=== PATIENT | male | born 1980 | race Caucasian/White ===

== ENCOUNTER 2023-11-17 13:10 | Emergency (ER) | payer OTHER, SELFPAY ==
[2023-11-17 13:22] VITALS: BP 125/88; PULSE 88; RESP 16; TEMP 36.1; O2SAT 100
--- NOTE | 2023-11-17 13:55 | ED.DIZZY ---
HPI - Dizziness General Chief Complaint: Dizziness Stated Complaint: Sinus Infection Symptoms/Dizziness Time Seen by Provider: 11/17/23 13:55 Source: patient and RN notes reviewed Mode of arrival: ambulatory Limitations: no limitations History of Present Illness HPI Narrative: 43 y/o male presented for c/o dizziness, onset yesterday. Describes an intermittent room-spinning sensation, worse with movements and turning head to the left. Pt also reports bilateral ear pressure. Denies nasal congestion, cough, tinnitus, ear drainage, n/v/d/f/c. Took DayQuil and NyQuil. Also tried Zev maneuver at home this morning, and reports the symptoms are not as severe. Related Data Home Medications Medication Instructions Recorded Confirmed lisdexamfetamine 20 mg capsule 20 mg PO DAILY 11/17/23 11/17/23 Allergies Allergy/AdvReac Type Severity Reaction Status Date / Time No Known Allergies Allergy Verified 11/17/23 13:48 Review of Systems Review of Systems: CONSTITUTIONAL: Denies body aches, fever, chills, or sweats. EYES: Denies visual changes, redness, or discharge. ENT: Denies rhinorrhea, congestion, sore throat, or otalgia. CARDIOVASCULAR: Denies chest pain, palpitations, or edema. RESPIRATORY: Denies cough or dyspnea. GASTROINTESTINAL: Denies abdominal pain, nausea, vomiting, or diarrhea. GENITOURINARY: Denies dysuria or hematuria. SKIN: Denies rash, itching, or wounds. MUSCULOSKELETAL: Denies back pain, joint pain NEUROLOGIC: Endorses dizziness denies headache, numbness, tingling, or weakness, All systems reviewed & are unremarkable except as noted in HPI and below PMFSH Comments At time of signature, I have reviewed and agree with nursing past medical, surgical, social and family history unless otherwise noted. Please see nursing chart for further information. There is no relevant family history pertinent to the presenting complaint Exam Narrative: GENERAL: Well-appearing, well-nourished HEAD: Normocephalic, atraumatic. EYES: PERRLA, EOMI. ENT: Mucous membranes pink and moist. No rhinorrhea. TMs normal bilaterally, mild clear effusion bilat. NECK: Normal AROM. Supple. No lymphadenopathy. CHEST: No respiratory distress. Clear to auscultation. HEART: Regular rate and rhythm. No murmur appreciated. Normal peripheral pulses. ABDOMEN: Soft, nontender, nondistended, normal active bowel sounds. EXTREMITIES: Normal range of motion. No edema. SKIN: Warm, dry, no rash. Capillary refill normal. Normal skin turgor. NEURO: Dizziness with head movement. No focal deficits. Alert and oriented x3. Finger to nose intact bilaterally. EOMs intact without nystagmus. No facial droop/asymmetry noted bilaterally. Grimace intact. Intact sensation in face. Hearing intact bilaterally. Shoulder shrug intact. Strength 5/5 bilateral upper extremities. Ambulatory exam with a normal based, steady gait. PSYCH: Normal affect. Course Course Emergency Course: Patient is aware of diagnosis, understands and agrees to treatment plan. Anticipatory guidance given. Patient agrees to follow-up as directed and is aware of reasons to seek care at the emergency department. Portions of this record may have been created with voice recognition software Level of Care: Express Care Visit Vital Signs Vital signs: Vital Signs Temperature 96.9 F L 11/17/23 13:22 Pulse Rate 88 11/17/23 13:22 Respiratory Rate 16 11/17/23 13:22 Blood Pressure 125/88 11/17/23 13:22 Pulse Oximetry 100 11/17/23 13:22 Temperature 96.9 F L 11/17/23 13:22 Pulse Rate 88 11/17/23 13:22 Respiratory Rate 16 11/17/23 13:22 Blood Pressure 125/88 11/17/23 13:22 Pulse Oximetry 100 11/17/23 13:22 MDM - Dizziness MDM Narrative Medical decision making narrative: Patients vertigo is felt to be likely peripheral in origin. there is no diplopia, dysarthria, or dysphagia. Patients gait is stable and there are no focal neurological def
[2023-11-17] MEDS: MECLIZINE HCL 25 MG TABLET PO (14:10)
== END 2023-11-17 14:20 | disposition home or self-care (01) ==
PROVIDERS: Emergency Provider Nurse Practitioner Family; PCP Family Medicine
DX: R42 Dizziness and giddiness (principal)
CPT/HCPCS: 99213; A9270; G0463

== ENCOUNTER 2024-10-22 02:18 | Day surgery (SDC) | payer OTHER, SELFPAY ==
[2024-10-07 13:06] VITALS: BMI 30.7
--- OUTSIDE RECORDS SUMMARY | 2024-10-22 02:21 | XMS_ITS | Clinical Summary ---
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 Role Phone Unavailable Primary Care Provider Unavailabl e Social History Tobacco Use Types Packs/Day Years Used Date Smoking Tobacco: Never Assessed Sex and Gender Information Value Date Recorded Sex Assigned at Not on file Legal Sex Male 7:54 AM CDT Gender Identity Not on file Sexual Orientation Not on file Last Filed Vital Signs Vital Sign Reading Time Taken Comments Blood Pressure 118/76 02/20/2015 2:33 PM CDT Pulse 88 02/20/2015 2:33 PM CDT Temperature - - Respiratory Rate - - Oxygen Saturation - - Inhaled Oxygen Concentration - - Weight 105 kg (231 lb 7 oz) 11/21/2013 8:01 AM C DT Height 180.3 cm (5' 11) 11/21/2013 8:01 AM CDT Body Mass Index 32.28 11/21/2013 8:01 AM CDT Plan of Treatment Health Maintenance Due Date Last Done Comments Colorectal Cancer Screening Colonoscopy (10 Years) 1979 Annual Physical 07/30/1982 Hepatitis C 07/30/1997 DTaP, Tdap and Td Vaccines ( 1 - Tdap) 07/30/1998 Hepatitis B Vaccines (1 of 3 - 19+ 3-dose series) 07/30/1998 COVID-19 Vaccine (2023-2 5 season) 2024 HPV Vaccines Aged Out No longer eligi ble based on patient's age to complete this topic Meningococcal B Vaccine Aged Out No l onger eligible based on patient's age to complete this topic Meningococcal Vaccine Aged Out No sandra quirino eligible based on patient's age to complete this topic Pneumococcal Vaccine: Pediat rics (0 to 5 Years) and At-Risk Patients (6 to 49 Years) Aged Out No longer eligible b ased on patient's age to complete this topic RSV Immunizations Under 20 Months Aged Out No longer eligible based on patient's age to complete this topic
--- OUTSIDE RECORDS SUMMARY | 2024-10-22 02:21 | XMS_ITS | Patient Health Record ---
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 Sara Gracia Unavailable [phone] Migration, Provider Unavailable Unavailable Allergies No Known Allergies Results Component Value Reference Range Notes Vitamin D, 25-Hydroxy Reviewed date:01/04/2024 12:00:00 AM Interpretation: Performing Lab: Notes/Report: Vitamin D, 25-Hydroxy 25.8 ng/mL Vitamin B12 Reviewed date:01/04/2024 12:00:00 AM Interpretation: Performing Lab: Notes/Report: Vitamin B12 692 pg/mL TSH Reviewed date:01/04/2024 12:00:00 AM Interpretation: Performing Lab: Notes/Report: TSH 1.550 uIU/mL Thyroxine (T4) Free, Direct, S Reviewed date:01/04/2024 12:00:00 AM Interpretation: Performing Lab: Notes/Report: T4,Free(Direct) 1.29 ng/dL Lipid Panel Reviewed date:01/04/2024 12:00:00 AM Interpretation: Performing Lab: Notes/Report: Cholesterol, Total 229 mg/dL HDL Cholesterol 29 mg/dL LDL Chol Calc (NIH) 155 mg/dL Triglycerides 243 mg/dL VLDL Cholesterol [place] 45 mg/dL Comp. Metabolic Panel (14) Reviewed date:01/04/2024 12:00:00 AM Interpretation: Performing Lab: Notes/Report: Albumin 4.3 g/dL Alkaline Phosphatase 99 IU/L ALT (SGPT) 35 IU/L AST (SGOT) 27 IU/L Bilirubin, Total 0.9 mg/dL BUN 14 mg/dL BUN/Creatinine Ratio 15 Calcium 9.0 mg/dL Carbon Dioxide, Total 20 mmol/L Chloride 104 mmol/L Creatinine 0.91 mg/dL eGFR 107 mL/min/1.73 Globulin, Total 2.1 g/dL Glucose 80 mg/dL Potassium 4.1 mmol/L Protein, Total 6.4 g/dL Sodium 140 mmol/L CBC With Differential/Platel et Reviewed date:01/04/2024 12:00:00 AM Interpretation: Performing Lab: Notes/Report: Baso (Absolute) 0.0 x10E3/uL Basos 0 % Eos 2 % Eos (Absolute) 0.1 x10E3/uL Hematocrit 51.0 % Hemoglobin 17.0 g/dL Immature Grans (Abs) 0.0 x10E3/uL Immature Granulocytes 0 % Lymphs 28 % Lymphs (Absolute) 1.5 x10E3/uL MCH 28.9 pg MCHC 33.3 g/dL MCV 87 fL Monocytes 9 % Monocytes(Absolute) 0.5 x10E3/uL Neutrophils 61 % Neutrophils (Absolute) 3.3 x10E3/uL Platelets 218 x10E3/uL RBC 5.89 x10E6/uL RDW 12.9 % WBC 5.4 x10E3/uL Reason For Referral Reason Dr. Orozco - non urg ent initial colonoscopy screening based on age. Diagnosis 1 Screening for colon cancer (Z12.11) Referral Organization [facility] Referring Provider First Name Dr. Ruiz Referring Provider Last Name [place] Referring Provider Speciality [facility] Referred Provider Specialty Gastroentero logy General Notes Michelle Dumont 0 08/09/2024 09:48:45 AM CDT >Referral faxed to Dr Orozco [phone], Michelle Dumont 09/24/2024 10:37:41 AM CDT >LVM with office about status of referral, Michelle Dumont 09/24/2024 11:04:29 AM CDT >Pt scheduled for 10/22/24 Referral Priority Routine Referral Appointment Date 10/22/2024 Medications Medication SIG (Take, Route, Frequency, Duration) Notes Start Date End Date Status Lisdexamfetamine Dimesylate 20 MG Capsule 1 capsule in the morning Orally Once a day; Duration: 30 days 10/04/2024 Active Meclizine HCl 25 MG Tablet 1 Oral three times a day; Duration: 0 11/17/2023 Active Immunizations Vaccine Route Administration Date Status Comme nts Tdap IM Intramuscular 08/01/2024 Administered Problems Problem Type SNOMED Code ICD Code Onset Dates Problem Status W/U Status Risk Notes Problem Vaccination given (147036125) Encounter for immunization (Z23) 018 Problem resolved confirmed Problem Cough (82731560) Cough (R05) 017 Problem resolved confirmed Problem Plantar fascial fibromatosis (53382049) Plantar fascial fibromatosis (M72.2) 017 Problem resolved confirmed Problem Arthralgia of the ankle and/or foot (253846883) Pain in unspecified ankle and joints of unspecified foot (M25.579) 017 Problem resolved confirmed Problem 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) 019 Problem resolved confirmed Problem influenza due to influenza a virus with upper respiratory signs (disorder) (407699650005163) Influenza due to identified novel influenza A virus with other respiratory manifestations (J09.X2) 017 Problem resolved confirmed Problem Hyperlipidemia (41030762) Other hyperlipidemia (E78.4) 017 Problem resolved confirmed Problem influenza due to influenza a virus with upper respiratory signs (disorder) (614159693959431) Influenza due to identified novel influenza A virus with other respiratory manifestations (488.82) 017 Problem resolved confirmed Problem Arthralgia of the ankle and/or foot (621632821) Pain in joint, ankle and foot (719.47) 017 Problem resolved confirmed Problem Vascular disorder of skin (81420169) Vascular disorder of skin (709.1) 019 Problem resolved confirmed Problem Hyperlipidemia (28339709) Hyperlipidemia, unspecified (E78.5) 024 Active confirmed Problem Vitamin B deficiency (54283355) Deficiency of other specified B group vitamins (E53.8) 024 Active confirmed Problem Shoulder joint pain (087044555) Pain in left shoulder (M25.512) 019 Problem resolved confirmed Problem Acute pansinusitis (5664463) Acute pansinusitis, unspecified (J01.40) 016 Problem resolved confirmed Problem Plantar fascial fibromatosis (97714765) Plantar fascial fibromatosis (728.71) 017 Problem resolved confirmed Problem Acute sinusitis (disorder) (15453643) Other acute sinusitis (461.8) 016 Problem resolved confirmed Problem Pure hyperglyceridemia (725293868) Pure hyperglyceridemia (272.1) 017 Problem resolved confirmed Problem Attention deficit hyperactivity disorder, 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) Attention and concentration deficit (R41.840) 024 Active confirmed Problem Vitamin D deficiency (25408016) Vitamin D deficiency, unspecified (E55.9) Active confirmed Problem Erectile dysfunction (disorder) (667750440) Other male erectile dysfunction (N52.8) Active confirmed Vital Signs Heart Rate 72 /min 08/01/2024 Temperature 97.2 degrees Fahrenheit 08/01/2024 Respiratory Rate 18 /min 08/01/2024 Height-cm 179.07 cm 08/01/2024 Oximetry 99 % 08/01/2024 Blood pressure diastolic 96 mm Hg 08/01/2024 Weight-kg 105.87 kg 08/01/2024 Height 70.50 in 08/01/2024 Blood pressure systolic 126 mm Hg 08/01/2024 Weight 233.4 lbs 08/01/2024 BMI 33.01 kg/m2 08/01/2024 Encounters Encounter Location Date Provider Diagnosis [address] [place] [address] 01/01/2024 Provider Migration Deficiency of other specified B group vitamins E53.8 ; Encounter for general adult medical examination without abnormal findings Z00.00 ; Hyperlipidemia, unspecified E78.5 and Vitamin D deficiency, unspecified E55.[address] [address] 01/04/2024 Brandie Ritter Attention and concentration deficit R41.840 ; Vitamin D deficiency, unspecified E55.9 ; Deficiency of other specified B group vitamins E53.8 and Hyperlipidemia, unspecified E78.[address] [address] 08/01/2024 Dr. Sara Gracia Encounter for general adult medical examination without abnormal findings Z00.00 ; Fatigue, unspecified type R53.83 ; Encounter for immunization Z23 ; Vitamin D deficiency, unspecified E55.9 ; Hyperlipidemia, unspecified E78.5 ; Other male erectile dysfunction N52.8 and Screening for colon cancer Z12.[address] [address] 04/06/2024 Provider Migration [address] [address] 04/07/2024 Provider Migration [address] [address] 05/15/[address] [address] 06/25/[address] [address] 06/25/2024 Brandie Ritter Encounter for [facility] adult medical examination without abnormal findings Z00.00 ; Deficiency of other specified B group vitamins E53.8 ; Vitamin D deficiency, unspecified E55.9 and Hyperlipidemia, unspecified E78.[address] [address] 07/30/[address] [address] 08/27/[address] [address] 08/27/2024 Dr. Sara Gracia [address] [address] 10/03/2024 Brandie Ritter Assessments Encounter Date Diagnosis (ICD Code) Assessment Notes Treatment Notes Treatment Clinical Notes Section Notes 01/01/2024 Deficiency of other specified B group vitamins (ICD-10 - E53.8) 01/01/2024 Vitamin D deficiency, unspecified (ICD-10 - E55.9) 01/01/2024 Hyperlipidemia, unspecified (ICD-10 - E78.5) 01/01/2024 Encounter for general adult medical examination without abnormal findings (ICD-10 - Z00.00) 01/04/2024 Deficiency of other specified B group vitamins (ICD-10 - E53.8) 01/04/2024 Vitamin D deficiency, unspecified (ICD-10 - E55.9) 01/04/2024 Hyperlipidemia, unspecified (ICD-10 - E78.5) 01/04/2024 Attention and concentration deficit (ICD-10 - R41.840) 06/25/2024 Encounter for general adult medical examination without abnormal findings (ICD-10 - Z00.00) 08/01/2024 Encounter for general adult medical examination without abnormal findings (ICD-10 - Z00.00) phone f/u in a few weeks. 08/01/2024 Fatigue, unspecified type (ICD-10 - R53.83) adding total T and ferritin to [facility] if possible. 08/01/2024 Encounter for immunization (ICD-10 - Z23) 06/25/2024 Deficiency of other specified B group vitamins (ICD-10 - E53.8) 06/25/2024 Vitamin D deficiency, unspecified (ICD-10 - E55.9) 08/01/2024 Vitamin D deficiency, unspecified (ICD-10 - E55.9) 08/01/2024 Hyperlipidemia, unspecified (ICD-10 - E78.5) 06/25/2024 Hyperlipidemia, unspecified (ICD-10 - E78.5) 08/01/2024 Other male erectile dysfunction (ICD-10 - N52.8) 08/01/2024 Screening for colon cancer (ICD-10 - Z12.11) 08/01/2024 Other [facility]. Elevated Cholesterol - Cholesterol is elevated but not high enough to require treatment. LDL is 155, HDL is 34, which is low but genetically influenced. The patient's 10-year cardiovascular risk is 3.3%, which is low. - No medication needed at this time. Recommended dietary changes include reducing red meat intake to less than twice a week and increasing exercise. Yearly cholesterol checks and risk score recalculation. Vitamin D Deficiency - Vitamin D levels are slightly low. Supplementation could help with energy and muscle strength. - Take 2000 units of Vitamin D daily. Low B12 Levels - B12 levels are low normal, decreased by 200 points since last year. Supplementation might help with energy. - Consider taking 3433-2580 micrograms of B12 daily. Fatigue and Sleep Quality - Fatigue possibly related to low Vitamin D, sleep disruption, or other factors. Potential sleep apnea or restless leg syndrome. - Add ferritin and testosterone tests to assess potential causes. Consider sleep quality factors. Sexual Performance Issues - Decreased erection ability, possibly related to Vyvanse or other factors. Vyvanse may cause constriction, affecting relaxation needed for erections. - Offer trial of low-dose Cialis or Viagra. Consider other options if side effects occur. Blood Pressure - Blood pressure slightly high today but not consistently high. Recheck blood pressure after sitting and talking. Colon Cancer Screening - Age-related recommendation for colonoscopy starting at age 45. Schedule colonoscopy with local GI specialist later in the year. Tetanus Vaccination - No record of recent Tdap vaccination. Consider getting Tdap vaccination, covered by insurance. Plan Of Treatment Pending Test Test Name Order Date Ferritin 08/01/2024 Testosterone Total 08/01/2024 Iron Level and TIBC 08/01/2024 Next Appt Details Provider Name:Dr. Sara Bruce [facility], 08/01/2025 09:30:00 AM, [address] [facility] [place], [address], [phone] Insurance Providers Payer Name Payer Address Payer Phone Subscriber Number Group Number Insured Name Patient Relationship to Insured Coverage Start Date Coverage End Date [facility] [address] [address] [place] [address] [id number] Perlita Good Spouse - patient is the spouse of the insured Medical (General) History Medical History History ICD Code Vitamin D deficiency, unspecified E55.9 Hyperlipidemia, unspecified E78.5 Deficiency of other specified B group vi tamins E53.8 Attention and concentration deficit R41. 840
[2024-10-22 11:04] VITALS: BP 129/85; PULSE 87; RESP 16; TEMP 36.6; O2SAT 100; BMI 32.3
--- NOTE | 2024-10-22 11:15 | SUR.PREOP ---
patient stated had an egg casserole that contained sausage yesterday at 0730. pts stated stools yellow and clear. was notified and will proceed with procedure.
[2024-10-22] MEDS: LACTATED RINGERS 1,000 ML 150 ML IV CONT (11:18)
--- NOTE | 2024-10-22 12:23 | P.PNAN_ITS ---
Anes - Initial Pre Proc Eval Procedure: Operation Date: 10/22/24 12:30 Proposed Procedures p Screening Colonoscopy - Marquis Sun MD Date/Time: 10/22/24 12:23 Surgeon: Marquis Sun MD Pre Op Diagnosis: Screening Patient Data Age: 44 Gender: M Height: 1.8 m Weight: 105.1 kg Last Vital Signs Temp 97.8 F 10/22/24 11:04 Pulse 87 10/22/24 11:04 Resp 16 10/22/24 11:04 BP 129/85 10/22/24 11:04 Pulse Ox 100 10/22/24 11:04 O2 Del Method Room Air 10/22/24 11:04 Allergies Allergy/AdvReac Type Severity Reaction Status Date / Time No Known Allergies Allergy Verified 10/22/24 11:09 Home Medications ?Medication ?Instructions ?Recorded ?Confirmed ?Type lisdexamfetamine 20 mg capsule 20 mg PO DAILY 11/17/23 10/22/24 History Patient hx anesthesia problems: none Family hx anesthesia problems: none Results Review: All pre-operative results and documents have been reviewed as part of the pre- operative evaluation. PMFSH Past Medical History Medical History Over weight ADHD Social History Social History Smoking status: Never smoker Alcohol intake: never Substance use: never Substance use type: does not use Living arrangements: with family Spiritual care concerns: No Anes - Eval Final PreProcedure Day of Procedure 10/22/24 12:23 Patient weight: overweight Heart: regular rate and rhythm Lungs: clear to auscultation Airway: Mallampati scale class II Neurological: alert and oriented Last oral intake: >/= 8 hours ASA classification: II Emergent: no Anesthetic plan: proceed Anesthesia type and monitoring: general GIVS and standard monitoring Results Review: All pre-operative results and documents have been reviewed as part of the pre- operative evaluation. Informed Consent: The patient's anesthetic plan and its attendant risks and benefits were discussed with the patient/family/POA. Questions were solicited and answers provided to the satisfaction of the patient/family/POA.
--- NOTE | 2024-10-22 12:31 | PM.HPGS ---
History of Present Illness History of Present Illness Consent: Risks, benefits, and alternatives have been discussed and questions answered. Patient agrees to proceed with procedure. Chief complaint: Screening Narrative: Frank Good is a 44 year old male here for first screening colonoscopy Review of Systems Review of Systems: All systems reviewed & are unremarkable except as noted in HPI and below PMFSH Past Medical History Medical History (Updated 10/22/24 @ 12:31 by Marquis Sun MD) Colon cancer screening Over weight ADHD Social History Social History Smoking status: Never smoker Alcohol intake: never Substance use: never Substance use type: does not use Living arrangements: with family Spiritual care concerns: No Meds Home Medications and Allergies Home Medications ?Medication ?Instructions ?Recorded ?Confirmed ?Type lisdexamfetamine 20 mg capsule 20 mg PO DAILY 11/17/23 10/22/24 History Allergies Allergy/AdvReac Type Severity Reaction Status Date / Time No Known Allergies Allergy Verified 10/22/24 11:09 Vital Signs Vital Signs - 24 hr 10/22/24 11:04 Temperature 97.8 F Pulse Rate 87 Respiratory Rate 16 Blood Pressure 129/85 Pulse Oximetry 100 Oxygen Delivery Room Air Exam Const: General: comfortable and no acute distress HENMT: Face/Nose/Sinus: Normal nares present Eyes: General: appearance normal, both eyes and all related structures Neck: Neck: no JVD Resp: Auscultation: clear to auscultation bilaterally Cardio: Rate: regular rate Rhythm: regular rhythm GI: Inspection: non-distended GI Palp: Yes Soft to palpation Skin: General skin exam: normal color Neuro: Speech: normal speech Extrem: General: normal to inspection Psych: Mental Status: mental status grossly normal Assessment and Plan Assessment and plan (1) Colon cancer screening: Code(s): Z12.11 - Encounter for screening for malignant neoplasm of colon Status: Acute Assessment and Plan: colonoscopy
--- NOTE | 2024-10-22 12:46 | S_PTH ---
PATIENT: Frank Good LOC: [facility] Adhikari#:[id number] AGE/SX: 44/M ROOM: RE10/22/[address]: Marquis Sun MD : 1980 BED: DIS: 10/22/2024 SPEC #: [id number] RECD: 10/22/24 13:10 STATUS: TINA REManuela #: [id number] SERAFIN: 10/22/24 12:[address]: Marquis Sun DEPT: [facility] Surgical RECD BY: Alvaro Ellis ENTERED: 10/22/24 13:11 SP TYPE: Surgical OTHR DR: Sara Gracia MD Tissues: A - Colon Polypectomy B - Colon Polypectomy Procedures: Hematoxylin and Eosin Stain Gross and Microscopic Level 4
[2024-10-22 12:47] VITALS: BP 100/62; PULSE 76; RESP 18; O2SAT 96
[2024-10-22 12:57] VITALS: BP 107/65; PULSE 76; RESP 18; O2SAT 95
[2024-10-22 13:07] VITALS: BP 118/85; PULSE 73; RESP 20; O2SAT 98
== END 2024-10-22 13:44 | disposition home or self-care (01) ==
PROVIDERS: PCP Family Medicine; Referring Provider Family Medicine; Visit Provider Internal Medicine Gastroenterology
PROC: 0DJD8ZZ Inspection of Lower Intestinal Tract, Via Natural or Artificial Opening Endoscopic (ICD-10-PCS; CPT 45378; principal; 2024-10-22 12:30)
DX: Z12.11 Encounter for screening for malignant neoplasm of colon (principal); K63.5 Polyp of colon; K62.1 Rectal polyp; K64.8 Other hemorrhoids
CPT/HCPCS: 45380; 88305; J2003; J2704; J7120